=== PATIENT | male | born 1990 | race Caucasian/White ===

== ENCOUNTER 2021-03-29 02:05 | Emergency (ER) | payer OTHER ==
[2021-03-29 02:38] VITALS: BP 124/81; PULSE 80; TEMP 98.7; BMI 25.0
[2021-03-29] MEDS ORDERED: DIPHTH,PERTUSS(ACELL),TET 0.5 ML DISP.SYRIN IM ONE ×2 (03:25→05:06)
== END 2021-03-29 05:13 | disposition home or self-care (01) ==
LOC: JER 02:05
PROC: 0HQ0XZZ Repair Scalp Skin, External Approach (ICD-10-PCS; principal; 2021-03-29)
PROC: 3E0234Z Introduction of Serum, Toxoid and Vaccine into Muscle, Percutaneous Approach (ICD-10-PCS; 2021-03-29)
DX: S01.81XA Laceration without foreign body of other part of head, initial encounter (principal)
CPT/HCPCS: 70450-TC; 90471; 90715; 99284-25